=== PATIENT | female | born 2000 | race Caucasian/White ===

== ENCOUNTER 2019-04-04 00:14 | Emergency (ER) | payer BC, OTHER ==
[~2019-04-04] VITALS: Ht 162.6 cm; Wt 71.7 kg
--- NOTE | 2019-04-04 00:33 | ED Abdominal Pain ---
General Stated Complaint: SEVER ABD PAIN Source of Information: Patient, Old Records, RN Notes Reviewed Exam Limitations: No Limitations History of Present Illness Date Seen by Provider: Apr 04, 2019 Time Seen by Provider: 00:33 Allergies and Home Medications Allergies Coded Allergies: No Known Drug Allergies (Unverified , 04/04/19) Past Bojzcbe-Ebjjwc-Zfuzms Hx Patient Social History Recent Foreign Travel: No Contact w/Someone Who Travel: No Physical Exam Vital Signs Vital Signs - First Documented 04/04/19 00:25 Temp 98.0 Pulse 69 Resp 18 B/P (MAP) 131/83 Capillary Refill : Height/Weight/BMI Height: '" Weight: lbs. oz. kg; BMI Method: Progress/Results/Core Measures Results/Orders Lab Results Laboratory Tests Test 04/04/19 00:41 04/04/19 00:47 Range/Units Urine Color YELLOW Urine Clarity CLEAR Urine pH 6.0 5-9 Urine Specific [place] 1.025 H 1.016-1.022 Urine Protein NEGATIVE NEGATIVE Urine Glucose (UA) NEGATIVE NEGATIVE Urine Ketones NEGATIVE NEGATIVE Urine Nitrite NEGATIVE NEGATIVE Urine Bilirubin NEGATIVE NEGATIVE Urine Urobilinogen 0.2 NORMAL MG/DL Urine Leukocyte Esterase NEGATIVE NEGATIVE Urine RBC (Auto) TRACE H NEGATIVE Urine RBC RARE /HPF Urine WBC 0-2 /HPF Urine Squamous Epithelial Cells 10-25 H /HPF Urine Crystals NONE /LPF Urine Bacteria MODERATE H /HPF Urine Casts NONE /LPF Urine Mucus NEGATIVE /LPF Urine Culture Indicated YES Urine Test NEGATIVE NEGATIVE White Blood Count 11.3 H 4.3-11.0 10^3/uL Red Blood Count 4.52 4.35-5.85 10^6/uL Hemoglobin 13.5 11.5-16.0 G/DL Hematocrit 40 35-52 % Mean Corpuscular Volume 88 80-99 FL Mean Corpuscular Hemoglobin 30 25-34 PG Mean Corpuscular Hemoglobin Concent 34 32-36 G/DL Red Cell Distribution Width 12.3 10.0-14.5 % Platelet Count 323 130-400 10^3/uL Mean Platelet Volume 10.1 7.4-10.4 FL Neutrophils (%) (Auto) 58 42-75 % Lymphocytes (%) (Auto) 31 12-44 % Monocytes (%) (Auto) 8 0-12 % Eosinophils (%) (Auto) 3 0-10 % Basophils (%) (Auto) 0 0-10 % Neutrophils # (Auto) 6.5 1.8-7.8 X 10^3 Lymphocytes # (Auto) 3.5 1.0-4.0 X 10^3 Monocytes # (Auto) 0.9 0.0-1.0 X 10^3 Eosinophils # (Auto) 0.3 0.0-0.3 10^3/uL Basophils # (Auto) 0.0 0.0-0.1 10^3/uL Sodium Level 141 135-145 MMOL/L Potassium Level 3.5 L 3.6-5.0 MMOL/L Chloride Level 102 98-107 MMOL/L Carbon Dioxide Level 21 21-32 MMOL/L Anion Gap 18 H 5-14 MMOL/L Blood Urea Nitrogen 12 7-18 MG/DL Creatinine 0.80 0.60-1.30 MG/DL Estimat Glomerular Filtration Rate > 60 BUN/Creatinine Ratio 15 Glucose Level 90 70-105 MG/DL Calcium Level 9.1 8.5-10.1 MG/DL Corrected Calcium 8.5-10.1 MG/DL Total Bilirubin 0.6 0.1-1.0 MG/DL Aspartate Amino Transf (AST/SGOT) 15 5-34 U/L Alanine Aminotransferase (ALT/SGPT) 15 0-55 U/L Alkaline Phosphatase 60 40-136 U/L Total Protein 7.5 6.4-8.2 GM/DL Albumin 4.6 H 3.2-4.5 GM/DL Lipase 36 8-78 U/L My Orders Orders - RANDY MENDOZA DO Ed Iv/Invasive Line Start (04/04/19 00:34) Cbc With Automated Diff (04/04/19 00:34) Comprehensive Metabolic Panel (04/04/19 00:34) Hcg,Qualitative Urine (04/04/19 00:34) Lipase (04/04/19 00:34) Ua Culture If Indicated (04/04/19 00:34) Urine Culture (04/04/19 00:41) Ketorolac Injection (Toradol Injection) (04/04/19 01:30) Rocephin 1 Gm Iv (1x Dose) (04/04/19 01:30) Vital Signs/I&O 04/04/19 00:25 Temp 98.0 Pulse 69 Resp 18 B/P (MAP) 131/83 Departure Impression Primary Impression: UTI (urinary tract infection) Additional Impression: Abdominal pain Disposition: 01 HOME, SELF-CARE Condition: Stable Departure-Patient Inst. Decision time for Depature: 01:23 Referrals: SONIA MOREJON MD (PCP) Primary Care Physician Patient Instructions: Urinary Tract Infection, Adult (DC) Add. Discharge Instructions: RECOMMEND 400 mg OF IBUPROFEN &/OR 1000 mg OF TYLENOL EVERY 6 HOURS NEEDED FOR PAIN. DO NOT EXCEED 4000 mg OF TYLENOL IN A 24 HOUR PERIOD. RETURN IF YOUR SYMPTOMS WORSEN, ESPECIALLY IF DEVELOP NAUSEA/VOMITING, AND/OR EVER. Scripts Cefuroxime Axetil (Cefuroxime) 250 Mg Tablet 250 MG PO BID for UTI for 10 Days, #20 TAB 0 Refills Prov: RANDY MENDOZA DO 04/04/19 RANDY MENDOZA DO Apr 04, 2019 00:33
[2019-04-04] MEDS ORDERED: LIDOCAINE 2% VISCOUS 15 ML UDC PO ONE (00:45)
[2019-04-04] MEDS ORDERED: ANTACID SUSP 30 ML UDC (MYLANTA) PO ONE (00:45)
[2019-04-04 00:59] LABS: HEMATOCRIT 40 % (35-52); HEMOGLOBIN 13.5 G/DL (11.5-16.0); MEAN CORPUSCULAR HEMOGLOBIN 30 PG (25-34); MEAN CORPUSCULAR VOLUME 88 FL (80-99); WHITE BLOOD COUNT 11.3 10^3/uL (4.3-11.0)
[2019-04-04 01:00] LABS: BASOPHILS % (AUTO) 0 % (0-10); EOSINOPHILS # (AUTO) 0.3 10^3/uL (0.0-0.3); EOSINOPHILS % (AUTO) 3 % (0-10); LYMPHOCYTES # (AUTO) 3.5 X 10^3 (1.0-4.0); LYMPHOCYTES % (AUTO) 31 % (12-44); MEAN CORPUSCULAR HGB CONC 34 G/DL (32-36); MEAN PLATELET VOLUME 10.1 FL (7.4-10.4); MONOCYTES # (AUTO) 0.9 X 10^3 (0.0-1.0); MONOCYTES % (AUTO) 8 % (0-12); NEUTROPHILS # (AUTO) 6.5 X 10^3 (1.8-7.8); NEUTROPHILS % (AUTO) 58 % (42-75); PLATELET COUNT 323 10^3/uL (130-400); RED CELL DISTRIBUTION WIDTH 12.3 % (10.0-14.5)
[2019-04-04 01:01] LABS: CLARITY,URINE CLEAR; COLOR,URINE YELLOW; PROTEIN,URINE NEGATIVE (NEGATIVE)
[2019-04-04 01:02] LABS: BACTERIA,URINE MODERATE /HPF; BILIRUBIN,URINE NEGATIVE (NEGATIVE); GLUCOSE, URINE (UA) NEGATIVE (NEGATIVE); KETONES,URINE NEGATIVE (NEGATIVE); LEUKOCYTE ESTERASE ,URINE NEGATIVE (NEGATIVE); NITRITE,URINE NEGATIVE (NEGATIVE); RBC,URINE RARE /HPF; UROBILINOGEN,URINE 0.2 MG/DL (NORMAL); WBC,URINE 0-2 /HPF
[2019-04-04 01:15] LABS: ALANINE AMINOTRANSFERASE 15 U/L (0-55); ALBUMIN 4.6 GM/DL (3.2-4.5); ALKALINE PHOSPHATASE 60 U/L (40-136); BILIRUBIN,TOTAL 0.6 MG/DL (0.1-1.0); BUN/CREATININE RATIO 15; CALCIUM 9.1 MG/DL (8.5-10.1); CARBON DIOXIDE 21 MMOL/L (21-32); CHLORIDE 102 MMOL/L (98-107); GFR ESTIMATED > 60; GLUCOSE 90 MG/DL (70-105); LIPASE 36 U/L (8-78); POTASSIUM 3.5 MMOL/L (3.6-5.0); SODIUM 141 MMOL/L (135-145); TOTAL PROTEIN 7.5 GM/DL (6.4-8.2)
[2019-04-04] MEDS ORDERED: KETOROLAC 30 MG/ML VIAL ONE (01:24)
[2019-04-04] MEDS ORDERED: WATER (STERILE) FOR INJECTION 10 ML ONE (01:25)
[2019-04-04] MEDS ORDERED: cefTRIAXone 1,000 MG IV (ROCEPHIN) VIAL ONE (01:25)
[2019-04-04] MEDS ORDERED: CEFU250T80 PO (01:25)
[2019-04-04] MEDS ORDERED: cefTRIAXone FOR IV USE 1,000 MG in WATER (STERILE) FOR INJECTION 10 ML IV ONE (01:30)
[2019-04-04] MEDS ORDERED: KETOROLAC 30 MG/ML VIAL IVP ONE (01:30)
== END 2019-04-04 01:33 | disposition home or self-care (01) ==
LOC: EDUNIT# 00:14 → ER FS 00:19
DX: N39.0 Urinary tract infection, site not specified (principal)
CPT/HCPCS: 36415; 80053; 81000; 83690; 84703; 85025; 87088; 96374; 96375

== ENCOUNTER 2019-06-10 18:23 | Emergency (ER) | payer BC ==
[~2019-06-10] VITALS: Ht 162.6 cm; Wt 71.2 kg
[~2019-06-10 18:23] MED LIST: CEFU250T80 PO
--- NOTE | 2019-06-10 18:44 | ED General ---
General Stated Complaint: HEAD INJ History of Present Illness Date Seen by Provider: Jun 10, 2019 Time Seen by Provider: 18:42 Initial Comments Patient presenting to the emergency department for evaluation of headache and forgetfulness after to head injury and since over the past 2 days. 2 days ago she fell and hit her head on a door handle on the back of her head and then yesterday she rolled off her bed and hit the corner of a nightstand. Neither one of these caused loss of consciousness however she is now having a headache that she describes a pressure-like sensation with forgetfulness. She denies nausea vomiting fevers chills vision changes unilateral weakness numbness tingling or difficulty speaking or walking. She is healthy and takes no blood thinners. Allergies and Home Medications Allergies Coded Allergies: No Known Drug Allergies (Unverified , 04/04/19) Home Medications Cefuroxime Axetil 250 Mg Tablet, 250 MG PO BID Prescribed by: RANYD MENDOZA on 04/04/19 0125 Patient Home Medication List Home Medication List Reviewed: Yes Review of Systems Review of Systems Constitutional: no symptoms reported EENTM: no symptoms reported Respiratory: no symptoms reported Cardiovascular: no symptoms reported Gastrointestinal: no symptoms reported Musculoskeletal: no symptoms reported Skin: lumps Psychiatric/Neurological: Headache All Other Systems Reviewed Negative Unless Noted: Yes Past Mdqqrvi-Uvdwuz-Uyarxa Hx Patient Social History Recent Hopitalizations: No Seasonal Allergies Seasonal Allergies: No Past Medical History Surgeries: Yes (EGD, Colonoscopy) Respiratory: No Cardiac: No Neurological: No Genitourinary: No Gastrointestinal: Yes (Peptic Ulcers) Gastrointestinal Bleed Musculoskeletal: No Endocrine: No HEENT: No Cancer: No Integumentary: No Blood Disorders: No Physical Exam Vital Signs Vital Signs - First Documented 06/10/19 18:30 Temp 99.1 Pulse 78 Resp 18 B/P (MAP) 131/75 Pulse Ox 99 Capillary Refill : Height, Weight, BMI Height: 5'4.00" Weight: 158lbs. 0oz. 71.256956kt; 21.09 BMI Method:Stated General Appearance: No Apparent Distress, WD/WN Eyes: Bilateral Eye Normal Inspection, Bilateral Eye PERRL, Bilateral Eye EOMI Neck: Normal Inspection, Non Tender Respiratory: No Respiratory Distress Cardiovascular: Regular Rate, Rhythm Gastrointestinal: Non Tender, Soft Back: Normal Inspection Extremity: Normal Capillary Refill Neurologic/Psychiatric: Alert, Oriented x3, No Motor/Sensory Deficits Skin: Normal Color Progress/Results/Core Measures Suspected Sepsis SIRS Temperature: Pulse: Respiratory Rate: Blood Pressure / Mean: Results/Orders My Orders Orders - ANA LUISA SMITH DO Ct Head Wo (06/10/19 18:41) Hydrocodone/Apap 5/325 Tablet (Lortab 5 (06/10/19 18:45) Ibuprofen Tablet (Motrin Tablet) (06/10/19 18:45) Medications Given in ED Current Medications Medications Dose Ordered Sig/Michael Route Start Time Stop Time Status Last Admin Dose Admin Acetaminophen/ Hydrocodone Bitart 1 tab ONCE ONCE PO 06/10/19 18:45 06/10/19 18:46 DC 06/10/19 19:05 1 TAB Ibuprofen 600 mg ONCE ONCE PO 06/10/19 18:45 06/10/19 18:46 DC 06/10/19 19:05 600 MG Vital Signs/I&O 06/10/19 18:30 Temp 99.1 Pulse 78 Resp 18 B/P (MAP) 131/75 Pulse Ox 99 Capillary Refill : Progress Note : Progress Note Patient with likely concussion symptoms however she says that she is worsening. Go ahead and check a CT head treat her pain and reassess. CT negative for acute process and repeat neurologic exam is normal. Given patient appears well with normal vital signs benign physical exam and workup she'll be discharged in stable condition told to follow with primary care provider in 2-3 days and come back to the ED sooner if worsening pain neurologic changes other general concerns. Concussion protocol and return to activities was discussed at length. Patient aware and agreeable with plan and verbalized understanding of the above instructions. Departure Impression Primary Impression: CHI (closed head injury) Qualified Codes: S09.90XA - Unspecified injury of head, initial encounter Disposition: HOME, SELF-CARE Condition: Stable Departure-Patient Inst. Referrals: SONIA MOREJON MD (PCP/Family) Primary Care Physician Patient Instructions: Concussion, Adult (DC) ANA LUISA SMITH DO Jun 10, 2019 18:44
[2019-06-10] MEDS ORDERED: HYDROcodone/APAP 5 MG/325 MG (LORTAB) TAB PO ONE (18:45)
[2019-06-10] MEDS ORDERED: IBUPROFEN 600 MG (MOTRIN) TAB PO ONE (18:45)
--- NOTE | 2019-06-10 19:12 | Diagnostic Imaging Report ---
INDICATION: Trauma to the head. TECHNIQUE: Routine non contrast-enhanced axial images were obtained from the skull base to the vertex. Auto Exposure Controls were utilized during the CT exam to meet ALARA standards for radiation dose reduction COMPARISON: None. FINDINGS: The ventricles and cortical sulci are normal in size and contour. There is no midline shift or mass-effect. No acute intra-axial hemorrhage is seen. There are no abnormal areas of increased or decreased density to suggest acute hemorrhage or edema. No extra-axial masses or collections are present. The bony calvarium is intact. The visualized paranasal sinuses are unremarkable. The mastoid air cells are clear. IMPRESSION: 1. No acute intracranial abnormality. No CT evidence of mass, acute infarct or intracranial hemorrhage. Dictated by: Dictated on workstation # [id number]
== END 2019-06-10 19:23 | disposition home or self-care (01) ==
LOC: EDUNIT# 18:23 → ER FS 18:24
DX: S09.90XA Unspecified injury of head, initial encounter (principal); W01.198A Fall on same level from slipping, tripping and stumbling with subsequent striking against other object, initial encounter
CPT/HCPCS: 70450